=== PATIENT | female | born 1955 | race Asian ===

== ENCOUNTER → 2016-08-18 | Outpatient (CLI) | payer BC | LOC: BRMIMAGING 07:58 | PROVIDERS: ATTEND Physician Assistant | DX: Z12.31 Encounter for screening mammogram for malignant neoplasm of breast (principal); Z13.820 Encounter for screening for osteoporosis; M81.0 Age-related osteoporosis without current pathological fracture; Z78.0 Asymptomatic menopausal state; Z82.62 Family history of osteoporosis | CPT/HCPCS: G0202 ==

== ENCOUNTER → 2016-09-11 | Outpatient (CLI) | payer BC | LOC: BRMIMAGING 09:41 | PROVIDERS: ATTEND Physician Assistant | DX: Z12.39 Encounter for other screening for malignant neoplasm of breast (principal); R92.2 Inconclusive mammogram | CPT/HCPCS: G0206 ==

== ENCOUNTER → 2018-06-25 | Outpatient (CLI) | payer BC | LOC: BRMIMAGING 08:31 | PROVIDERS: ATTEND Physician Assistant | DX: Z12.31 Encounter for screening mammogram for malignant neoplasm of breast (principal); R92.8 Other abnormal and inconclusive findings on diagnostic imaging of breast ==

== ENCOUNTER → 2018-07-22 | Outpatient (CLI) | payer BC | LOC: BRMIMAGING 08:43 | PROVIDERS: ATTEND Physician Assistant | DX: R92.8 Other abnormal and inconclusive findings on diagnostic imaging of breast (principal); R92.2 Inconclusive mammogram ==